=== PATIENT | male | born 1965 | race Caucasian/White ===

== ENCOUNTER 2018-09-02 09:47 | Emergency (ER) | payer BC ==
[~2018-09-02] VITALS: Ht 180.3 cm; Wt 99.8 kg
[2018-09-02] MEDS ORDERED: HUMALOG100 UNIT/1 (10:03)
[2018-09-02] MEDS ORDERED: ZYRTEC10 M2 PO (17:14)
[2018-09-02] MEDS ORDERED: MEDROLPACK PO (17:14)
== END 2018-09-02 18:54 | disposition home or self-care (01) ==
LOC: ER 09:47
DX: M25.542 Pain in joints of left hand (principal); M79.605 Pain in left leg; M79.604 Pain in right leg; L27.0 Generalized skin eruption due to drugs and medicaments taken internally; T50.995A Adverse effect of other drugs, medicaments and biological substances, initial encounter; Y92.89 Other specified places as the place of occurrence of the external cause